=== PATIENT | female | born 1985 | race Caucasian/White ===

== ENCOUNTER 2018-06-19 08:46 | Day surgery (SDC) | payer OTHER ==
[2018-06-19] VITALS (12 sets, daily range): BP systolic 110–119; BP diastolic 55–81; PULSE 54–96; RESP 17–22; Ht 172.7 cm; Wt 135.3 kg
[~2018-06-19] VITALS: Ht 172.7 cm; Wt 135.3 kg
[2018-06-19] MEDS ORDERED: SOD CHLORIDE 0.9% 1,000 ML IV SCH (10:00)
[2018-06-19] MEDS ORDERED: CEFAZOLIN 2 GM/50 ML (PMX) 50 ML IVPB ONE (10:00)
--- NOTE | 2018-06-19 12:48 | PREAC ---
Date/Time of Note Date/Time of Note DATE: 06/19/18 TIME: 12:47 Anesthesia Eval and Record Evaluation Time Pre-Procedure Interview DATE: 06/19/18 TIME: 12:47 Age 33 Sex female NPO: 8 hrs Preoperative diagnosis RIGHT POSTERIOR EAR MASS Planned procedure EXCISION OF RIGHT POSTERIOR EAR MASS Past Medical History Past Medical History: Includes Pulm: Smoking Hx GI: Morbid obesity Surgery & Anesthesia Issues No known issue Meds Anticoagulation: No Beta Jesus within 24 hr: No Reason Beta Jesus not given: Pt. not on B-Jesus No Active Prescriptions or Reported Meds Current Medications Sodium Chloride 1,000 ml @ 75 mls/hr [id number] IV Last administered on 06/19/18at 10:17; Admin Dose 75 MLS/HR; Start 06/19/18 at 10:00; Stop 06/19/18 at 22:00 Meds reviewed: Yes Allergies Coded Allergies: No Known Drug Allergy (Verified Allergy, Unknown, 06/19/18) Allergies Reviewed: Yes Labs/Studies Labs Reviewed: Reviewed by anesthesiologist Result Diagram: 06/19/18 0930 06/19/18 0930 Laboratory Tests 06/19/18 09:30 test: Negative Pre-procedure Exam Last vitals Vital Signs Date Temp Pulse Resp B/P (MAP) Pulse Ox O2 O2 Flow FiO2 Time Delivery Rate 06/19/18 98.1 96 18 119/81 94 Room Air 09:38 (94) Airway: Adequate mouth opening, Adequate thyromental dist Mallampati: Mallampati II Teeth: Normal Lung: Normal Heart: Normal ASA Physical Status ASA physical status: 2 Emergency: None Planned Anesthetic General/MAC: LMA Planned Pain Management Parenteral pain med Pre-operative Attestations Prior to commencing anesthesia and surgery, the patient was re-evaluated, there was verification of: *The patient's identity *The results of appropriate recent lab work and preoperative vital signs *The above evaluation not changing prior to induction *Anesthetic plan, risk benefits, alternative and complications discussed with patient/family; questions answered; patient/family understands, accepts and wishes to proceed. RICKIE IRIZARRY June 19, 2018 12:48
[2018-06-19] MEDS ORDERED: BUPIVACAINE 0.25% (MPF) 30 ML INJ ONE (13:14)
[2018-06-19] MEDS ORDERED: PROPOFOL 100 ML ONE (13:15)
[2018-06-19] MEDS ORDERED: FENTAnyl 50 MCG/ML VIAL ONE (13:16)
[2018-06-19] MEDS ORDERED: LIDOCAINE 2% (SDV) 5 ML INJ ONE (13:21)
[2018-06-19] MEDS ORDERED: CEFAZOLIN 1 GM INJ ONE (13:38)
[2018-06-19] MEDS ORDERED: DEXAMETHASONE 4 MG/ML 5 ML INJ ONE (13:40)
[2018-06-19] MEDS ORDERED: ONDANSETRON 4 MG INJ ONE (13:40)
[2018-06-19] MEDS ORDERED: NEOMYC/POLYMYX/BACIT 30 GM OINT ONE (13:52)
[2018-06-19] MEDS ORDERED: NEOMYC/POLYMYX/BACIT 3.5GM OPH OINT ONE (13:52)
[2018-06-19] MEDS ORDERED: HYDROCODONE/APAP (5/325) TAB PO ONE (14:00)
--- NOTE | 2018-06-19 14:02 | OPR ---
Date/Time of Note Date/Time of Note DATE: 06/19/18 TIME: 14:00 Operative Report Procedure Date: June 19, 2018 Preoperative Diagnosis right posterior ear mass Postoperative Diagnosis same Operation/Procedure Performed 1. excision of right posterior ear mass 3 cm mass 3 cm incision 2. localized adjacent tissue transfer with the use of skin flaps 6 sq cm defect of right posterior ear 3. therapeutic injection of subcutaneous local anesthesia Surgeon see signature line [employer] none Anesthesia Type: general Estimated Blood Loss: 0 - 10 ml's Transfusion none Specimen right posterior ear mass Grafts/Implants none Complications none Pt Condition Post Procedure: stable Indications This is a 33-year-old female with a right posterior ear mass. She requests surgical excision. Risks alternatives benefits and personally discussed the patient. Patient expressed understanding and consents to the operation. Procedure Description Patient is taken to the OR and prepped and draped in usual sterile fashion. Surgical time was performed. IV antibiotics given. Elliptical incision was made over the right posterior mass. Dissection with cautery skin onto the mass and the mass was circumferentially excised. Good hemostasis established. Surgical site was then irrigated and washed out. Due to tissue defect localization to his transfer with these of skin flaps was performed. Multilayer closure with interrupted 2-0 Vicryl in interrupted 2-0 nylon for the skin. Therapeutic contains local anesthesia was injected at the incision site. Antib iotic ointment and dry dressings were applied. John REZA June 19, 2018 14:02
--- NOTE | 2018-06-19 14:09 | PAC ---
Date/Time of Note Date/Time of Note DATE: 06/19/18 TIME: 14:08 Post-Anesthesia Notes Post-Anesthesia Note Last documented vital signs Vital Signs Date Temp Pulse Resp B/P (MAP) Pulse Ox O2 O2 Flow FiO2 Time Delivery Rate 06/19/18 98.1 96 18 119/81 94 Room Air 1409 (94) Activity: WNL Respiratory function: WNL Cardiovascular function: WNL Mental status: Baseline Pain reasonably controlled: Yes Hydration appropriate: Yes Nausea/Vomiting absent: Yes RICKIE IRIZARRY June 19, 2018 14:09
[2018-06-19] MEDS ORDERED: OXYCODONE/ACETAMINOPHEN (5/325) TAB PO PRN ×2 (14:30)
[2018-06-19] MEDS ORDERED: ONDANSETRON 4 MG INJ IV PRN (14:30)
[2018-06-19] MEDS ORDERED: KETOROLAC 30 MG INJ IV PRN (14:30)
[2018-06-19] MEDS ORDERED: LABETALOL HCL 20MG INJ IV PRN (14:30)
[2018-06-19] MEDS ORDERED: MIDAZOLAM 1 MG/ML 2 ML INJ IV PRN (14:30)
[2018-06-19] MEDS ORDERED: FENTAnyl 50 MCG/ML VIAL IV PRN ×3 (14:30)
[2018-06-19] MEDS ORDERED: EPHEDrine SULFATE 50 MG/5 ML SYG IV PRN (14:30)
[2018-06-19] MEDS ORDERED: ALBUTEROL 0.083% (NEB) 2.5 MG/3 ML AMP HHN PRN (14:30)
[2018-06-19] MEDS ORDERED: MEPERIDINE 25 MG INJ IV PRN (14:30)
[2018-06-19] MEDS ORDERED: hydrALAzine 20 MG INJ IV PRN (14:30)
[2018-06-19] MEDS ORDERED: DIPHENHYDRAMINE 50 MG INJ IV PRN (14:30)
== END 2018-06-19 15:30 | disposition home or self-care (01) ==
LOC: SDS 08:46
PROVIDERS: ATTEND Surgery
DX: L72.0 Epidermal cyst (principal); Z87.891 Personal history of nicotine dependence
CPT/HCPCS: 14060; 80053; 85025; 85610; 85730; 88307; J0690; J1100; J2405; J3010; Z7512; Z7610